=== PATIENT | female | born 1980 | race Caucasian/White ===

== ENCOUNTER → 2023-08-24 14:39 | Outpatient (REF) | payer OTHER, SELFPAY | LOC: WDC 14:39 | PROVIDERS: ATTENDING PHYSICIAN Family Medicine | DX: Z12.31 Encounter for screening mammogram for malignant neoplasm of breast (principal); R92.8 Other abnormal and inconclusive findings on diagnostic imaging of breast | CPT/HCPCS: 76642; 77063; 77067 ==

== ENCOUNTER → 2023-09-05 09:28 | Outpatient (REF) | payer OTHER, SELFPAY ==
[2023-09-05 10:19] LABS: % Basophils 0.5 % (0-2); % Immature Granulocytes 0.2 % (0-0.5); % Lymphocytes 32.5 % (20.5-51.1); % Monocytes 4.8 % (1.7-9.3); Absolute Eosinophils 0.1 10^3/uL (0-0.7); Absolute Monocytes 0.3 10^3/uL (0.1-0.6); Absolute Neutrophils 3.7 10^3/uL (1.4-6.5); Hematocrit 38.7 % (37.0-47.0); Hemoglobin 12.8 g/dL (12.0-16.0); Mean Corp Hgb Conc. 33.1 g/dL (33.0-37.0); Mean Corpuscular Hgb 30.5 pg (27.0-31.0); Mean Corpuscular Volume 92.4 fL (81.0-99.0); Mean Platelet Volume 10.3 fL (7.4-10.4); Nucleated Red Blood Cells % 0 %; Platelet Count 352 10^3/uL (130-400); Red Blood Cell Count 4.19 10^6/uL (4.20-5.40); Red Cell Dist. Width 12.9 % (11.5-14.5); White Blood Cell Count 6.1 10^3/uL (4.8-10.8)
[2023-09-05 12:34] LABS: ALT (SGPT) 13 U/L (0-35); AST (SGOT) 21 U/L (14-36); Albumin 4.4 g/dl (3.5-5.0); Alkaline Phosphatase 71 U/L (38-126); Blood Urea Nitrogen 12 mg/dl (7-17); Calcium 9.8 mg/dl (8.4-10.2); Carbon Dioxide 24 mmol/L (22-30); Chloride 105 mmol/L (98-107); Glucose 82 mg/dl (70-99); HDL Cholesterol 75 mg/dl; Iron 53 ug/dl (37-170); LDL Cholesterol, Calculated 154 mg/dl; Potassium 4.4 mmol/L (3.5-5.1); Sodium 139 mmol/L (135-145); Total Bilirubin 0.6 mg/dl (0.2-1.3); Total Cholesterol 247 mg/dl (50-199); Total Protein 6.8 g/dl (6.3-8.2); Triglyceride 93 mg/dl (10-149); Very Low Density Lipoprotein 18 mg/dl (0-30); eGFR > 60.00
[2023-09-05 12:43] LABS: Percent Saturation 14 % (20-50); Total Iron Binding Capacity 362 ug/dl (265-497)
[2023-09-05 12:55] LABS: Vitamin D, 25-OH*** 45.2 ng/mL (30-80)
[2023-09-05 13:09] LABS: TSH 0.82 uIU/ml (0.47-4.68)
[2023-09-05 14:21] LABS: Folate 16.4 ng/ml (2.76-20); Vitamin B12 954 pg/ml (239-931)
== END ==
LOC: REG 09:28
PROVIDERS: ATTENDING PHYSICIAN Family Medicine
DX: N80.9 Endometriosis, unspecified (principal); N92.0 Excessive and frequent menstruation with regular cycle; E55.9 Vitamin D deficiency, unspecified; E53.8 Deficiency of other specified B group vitamins; K31.84 Gastroparesis
CPT/HCPCS: 36415; 80053; 80061; 82306; 82607; 82728; 82746; 83540; 83550; 84443; 85025

== ENCOUNTER → 2023-09-14 08:39 | Outpatient (REF) | payer OTHER, SELFPAY ==
[2023-09-14 11:00] LABS: Hepatitis B Surface Antibody Negative
== END ==
LOC: REG 08:39
PROVIDERS: ATTENDING PHYSICIAN Family Medicine
DX: Z01.84 Encounter for antibody response examination (principal)
CPT/HCPCS: 36415; 86706

== ENCOUNTER → 2023-10-25 11:11 | Outpatient (REF) | payer OTHER, SELFPAY | LOC: HWRAD 11:11 | PROVIDERS: ATTENDING PHYSICIAN Family Medicine | DX: Z87.42 Personal history of other diseases of the female genital tract (principal); N92.6 Irregular menstruation, unspecified; Z86.018 Personal history of other benign neoplasm | CPT/HCPCS: 76830; 76856 ==

== ENCOUNTER → 2024-08-26 14:21 | Outpatient (REF) | payer OTHER, SELFPAY | LOC: WDC 14:21 | PROVIDERS: ATTENDING PHYSICIAN Family Medicine | DX: Z12.31 Encounter for screening mammogram for malignant neoplasm of breast (principal) | CPT/HCPCS: 77063; 77067 ==

== ENCOUNTER → 2024-09-23 08:36 | Outpatient (REF) | payer OTHER, SELFPAY ==
[2024-09-23 09:19] LABS: % Basophils 0.4 % (0-2); % Eosinophils 1.2 % (0-6); % Immature Granulocytes 0.1 % (0-0.5); % Monocytes 4.1 % (1.7-9.3); % Neutrophils 69.2 % (42.2-75.2); Absolute Eosinophils 0.1 10^3/uL (0-0.7); Absolute Lymphocytes 2.1 10^3/uL (1.2-3.4); Absolute Monocytes 0.4 10^3/uL (0.1-0.6); Absolute Neutrophils 5.9 10^3/uL (1.4-6.5); Hematocrit 37.2 % (37.0-47.0); Hemoglobin 12.7 g/dL (12.0-16.0); Mean Corp Hgb Conc. 34.1 g/dL (33.0-37.0); Mean Corpuscular Hgb 30.9 pg (27.0-31.0); Mean Corpuscular Volume 90.5 fL (81.0-99.0); Mean Platelet Volume 10.1 fL (7.4-10.4); Nucleated Red Blood Cells % 0 %; Platelet Count 315 10^3/uL (130-400); Red Blood Cell Count 4.11 10^6/uL (4.20-5.40); White Blood Cell Count 8.5 10^3/uL (4.8-10.8)
[2024-09-23 11:20] LABS: ALT (SGPT) 12 U/L (0-35); AST (SGOT) 16 U/L (14-36); Alkaline Phosphatase 57 U/L (38-126); Blood Urea Nitrogen 10 mg/dl (7-17); Calcium 9.6 mg/dl (8.4-10.2); Carbon Dioxide 25 mmol/L (22-30); Chloride 109 mmol/L (98-107); Glucose 93 mg/dl (70-99); HDL Cholesterol 74 mg/dl; Iron 150 ug/dl (37-170); LDL Cholesterol, Calculated 143 mg/dl; Potassium 4.3 mmol/L (3.5-5.1); Sodium 140 mmol/L (135-145); Total Bilirubin 0.9 mg/dl (0.2-1.3); Total Cholesterol 246 mg/dl (50-199); Total Protein 6.7 g/dl (6.3-8.2); Triglyceride 149 mg/dl (10-149); Very Low Density Lipoprotein 29 mg/dl (0-30); eGFR > 60.00
[2024-09-23 11:28] LABS: Percent Saturation 36 % (20-50); Total Iron Binding Capacity 409 ug/dl (265-497)
[2024-09-23 13:49] LABS: Vitamin D, 25-OH*** 31.1 ng/mL (30-80)
[2024-09-23 14:08] LABS: Ferritin 13.9 ng/ml (6.24-137)
[2024-09-23 14:20] LABS: TSH 1.05 uIU/ml (0.47-4.68)
[2024-09-23 14:40] LABS: Folate 13.7 ng/ml (2.76-20); Vitamin B12 579 pg/ml (239-931)
== END ==
LOC: REG 08:36
PROVIDERS: ATTENDING PHYSICIAN Family Medicine
DX: N92.0 Excessive and frequent menstruation with regular cycle (principal); E55.9 Vitamin D deficiency, unspecified; E53.8 Deficiency of other specified B group vitamins; E78.5 Hyperlipidemia, unspecified; K31.84 Gastroparesis
CPT/HCPCS: 36415; 80053; 80061; 82306; 82607; 82728; 82746; 83540; 83550; 84443; 85025

== ENCOUNTER → 2024-10-01 06:41 | Outpatient (REF) | payer OTHER, SELFPAY | LOC: REG 06:41 | PROVIDERS: ATTENDING PHYSICIAN Family Medicine | DX: R51.9 Headache, unspecified (principal) | CPT/HCPCS: 36415; 84146 ==

== ENCOUNTER → 2024-10-07 14:27 | Outpatient (REF) | payer OTHER, SELFPAY | LOC: HWRAD 14:27 | PROVIDERS: ATTENDING PHYSICIAN Family Medicine | DX: R79.89 Other specified abnormal findings of blood chemistry (principal); R51.9 Headache, unspecified | CPT/HCPCS: 70450 ==

== ENCOUNTER → 2024-10-29 06:51 | Outpatient (REF) | payer OTHER, SELFPAY ==
[2024-10-29 07:41] LABS: ALT (SGPT) 12 U/L (0-35); AST (SGOT) 16 U/L (14-36); Albumin 4.2 g/dl (3.5-5.0); Alkaline Phosphatase 63 U/L (38-126); Blood Urea Nitrogen 10 mg/dl (7-17); Calcium 9.7 mg/dl (8.4-10.2); Carbon Dioxide 25 mmol/L (22-30); Chloride 107 mmol/L (98-107); Glucose 88 mg/dl (70-99); Potassium 4.4 mmol/L (3.5-5.1); Sodium 139 mmol/L (135-145); Total Protein 6.7 g/dl (6.3-8.2); eGFR > 60.00
[2024-10-29 07:55] LABS: FSH 15.7 mIU/ml
[2024-10-29 08:11] LABS: Cortisol, Random 25.4 ug/dl
[2024-10-31 05:45] LABS: IGF-1 Z Score Calculation -0.3
== END ==
LOC: REG 06:51
PROVIDERS: ATTENDING PHYSICIAN Nurse Practitioner Family; FAMILY PHYSICIAN Family Medicine
DX: E22.9 Hyperfunction of pituitary gland, unspecified (principal)
CPT/HCPCS: 36415; 80053; 82024; 82533; 82670; 83001; 83002; 84146; 84305; 84443

== ENCOUNTER → 2025-01-12 08:14 | Outpatient (REF) | payer OTHER, SELFPAY | LOC: PAVMRI 08:14 | PROVIDERS: ATTENDING PHYSICIAN Nurse Practitioner Family; FAMILY PHYSICIAN Family Medicine | DX: E22.9 Hyperfunction of pituitary gland, unspecified (principal) | CPT/HCPCS: 70553; A9575 ==

== ENCOUNTER → 2025-03-13 07:29 | Outpatient (REF) | payer OTHER, SELFPAY ==
[2025-03-13 08:42] LABS: ALT (SGPT) 12 U/L (0-35); AST (SGOT) 17 U/L (14-36); Albumin 4.1 g/dl (3.5-5.0); Alkaline Phosphatase 60 U/L (38-126); Blood Urea Nitrogen 12 mg/dl (7-17); Calcium 9.4 mg/dl (8.4-10.2); Carbon Dioxide 26 mmol/L (22-30); Chloride 105 mmol/L (98-107); Glucose 92 mg/dl (70-99); Potassium 4.3 mmol/L (3.5-5.1); Sodium 138 mmol/L (135-145); Total Protein 6.6 g/dl (6.3-8.2); eGFR > 60.00
== END ==
LOC: REG 07:29
PROVIDERS: ATTENDING PHYSICIAN Nurse Practitioner Family; FAMILY PHYSICIAN Family Medicine
DX: E22.9 Hyperfunction of pituitary gland, unspecified (principal)
CPT/HCPCS: 36415; 80053; 82670; 84146